=== PATIENT | female | born 1940 | race African-American/Black ===

== ENCOUNTER 2018-04-02 07:01 | Emergency (ER) | payer MEDICARE, MEDICAID ==
[~2018-04-02] VITALS: Ht 167.6 cm; Wt 72.7 kg
[2018-04-02] MEDS ORDERED: KETOROLAC 60MG/2ML VIAL IM STA (07:42)
[2018-04-02 08:45] LABS: BASOPHILS % 0.5 % (0.0-2.0); EOSINOPHILS % 1.8 % (0.0-5.0); HEMATOCRIT. 25.9 % (36.0-48.0); HEMOGLOBIN. 8.5 g/dL (12.0-16.0); LYMPHOCYTES % 26.9 % (20.0-50.0); MEAN CORPUSCULAR HEMOGLOBIN 32.5 pg (28.0-32.0); MEAN CORPUSCULAR VOLUME 98.9 fL (81.0-99.0); MEAN PLATELET VOLUME 7.4 fl (7.4-10.4); MONOCYTES % 11.7 % (2.0-8.0); NEUTROPHILS % 59.1 % (40.0-76.0); PLATELET 261 x1000/uL (130-400); RED BLOOD CELL COUNT 2.62 mill/uL (4.2-5.4); RED CELL DISTRIBUTION WIDTH 15.9 % (11.6-14.6)
[2018-04-02 08:50] LABS: CHLORIDE 104 mEq/L (98-107)
[2018-04-02 08:54] LABS: INR 1.6; PARTIAL THROMBOPLASTIN TIME 38.9 sec (23.4-31.0); PROTHROMBIN TIME 16.1 sec (9.1-11.1)
[2018-04-02 14:19] VITALS: BP 134/84
== END 2018-04-02 14:20 | disposition home or self-care (01) ==
LOC: ER 07:01
DX: M54.30 Sciatica, unspecified side (principal); I10 Essential (primary) hypertension; I48.91 Unspecified atrial fibrillation; J45.909 Unspecified asthma, uncomplicated
CPT/HCPCS: 36415; 71045; 80053; 83880; 84484; 85025; 85610; 85730; 93005; 96372; 99284; J1885

== ENCOUNTER 2018-05-15 11:01 | Inpatient (IN) | payer MEDICARE, MEDICAID ==
[~2018-05-15] VITALS: Ht 162.6 cm; Wt 59.0 kg
[2018-05-15] MEDS ORDERED: FAMOTIDINE 20MG/2ML VIAL IV ONE (11:30)
[2018-05-15] MEDS ORDERED: SODIUM CHLORIDE 0.9% 500 ML IV ONE (11:46)
[2018-05-15] MEDS ORDERED: ASPIRIN 81MG TABLET PO ONE (12:00)
[2018-05-15 13:38] LABS: BASOPHILS % 0.5 % (0.0-2.0); EOSINOPHILS % 1.2 % (0.0-5.0); HEMATOCRIT. 30.8 % (36.0-48.0); HEMOGLOBIN. 10.1 g/dL (12.0-16.0); LYMPHOCYTES % 33.9 % (20.0-50.0); MEAN CORPUSCULAR HEMOGLOBIN 31.9 pg (28.0-32.0); MEAN CORPUSCULAR VOLUME 96.9 fL (81.0-99.0); MEAN PLATELET VOLUME 7.5 fl (7.4-10.4); MONOCYTES % 13.4 % (2.0-8.0); PLATELET 220 x1000/uL (130-400); RED BLOOD CELL COUNT 3.17 mill/uL (4.2-5.4); RED CELL DISTRIBUTION WIDTH 13.7 % (11.6-14.6)
[2018-05-15 13:43] LABS: CHLORIDE 105 mEq/L (98-107)
[2018-05-15 13:47] LABS: INR 1.4; PROTHROMBIN TIME 14.4 sec (9.1-11.1)
[2018-05-15] MEDS ORDERED: FUROSEMIDE 20MG/2ML VIAL IVP ONE (14:00)
[2018-05-15] MEDS ORDERED: CEFTRIAXONE 1 G PREMIX 50 ML IV ONE (14:00)
[2018-05-15] MEDS ORDERED: POTASSIUM CHLORIDE 20MEQ TABLET SR PO ONE (14:15)
[2018-05-15 20:31] VITALS: BP 118/87
[2018-05-15 21:11] VITALS: BP 118/87
[2018-05-15] MEDS ORDERED: ONDANSETRON HCL 4MG/2ML INJ IV PRN (21:45)
[2018-05-15] MEDS ORDERED: CLONIDINE 0.1MG TABLET PO PRN (21:45)
[2018-05-15] MEDS ORDERED: TRAMADOL 50MG TABLET PO PRN (21:45)
[2018-05-15] MEDS ORDERED: MAGNESIUM/ALUMINUM HYDROXIDE/SIMETHICONE 30ML UDC PO PRN (21:45)
[2018-05-15] MEDS ORDERED: POTASSIUM CHLORIDE 20MEQ TABLET SR PO NR (21:45)
[2018-05-15] MEDS ORDERED: MAGNESIUM HYDROXIDE 400MG/5ML 30ML UDC PO PRN (21:45)
[2018-05-15] MEDS ORDERED: FAMOTIDINE 20MG TABLET PO SCH (22:00)
[2018-05-15] MEDS: SODIUM CHLORIDE 0.9% INJ 3ML FLUSH IVF SCH (23:03)
[2018-05-16] MEDS: ACETAMINOPHEN 325MG TABLET PO PRN ×2 (03:29→19:15)
[2018-05-16] MEDS: SODIUM CHLORIDE 0.9% INJ 3ML FLUSH IVF SCH ×2 (06:41→14:51)
[2018-05-16 08:00] VITALS: BP 98/62
[2018-05-16] MEDS ORDERED: ENOXAPARIN 30MG/0.3ML SYR SUBCUT SCH (09:00)
[2018-05-16] MEDS ORDERED: ALPRAZOLAM 0.25 MG TABLET PO NR (14:45)
[2018-05-16 16:03] VITALS: BP 101/63
[2018-05-16 18:05] VITALS: BP 101/63
[2018-05-16 20:00] VITALS: BP 100/61
== END 2018-05-16 20:25 | disposition home health service (06) | DRG 683 ==
LOC: ER 11:05 → 8WST 14:08 → EDBEDREQTM 14:13 → EDBEDREQ 14:13 → ENRESERV 14:25 → ER 18:32
PROVIDERS: ADMIT Internal Medicine; ATTEND Internal Medicine
DX: N17.9 Acute kidney failure, unspecified (principal); E44.1 Mild protein-calorie malnutrition; M94.0 Chondrocostal junction syndrome [Tietze]; E87.6 Hypokalemia; I10 Essential (primary) hypertension; K59.09 Other constipation; I48.2 Chronic atrial fibrillation; J44.9 Chronic obstructive pulmonary disease, unspecified; M19.012 Primary osteoarthritis, left shoulder; Z96.649 Presence of unspecified artificial hip joint; G89.29 Other chronic pain; M54.30 Sciatica, unspecified side; M54.9 Dorsalgia, unspecified; R31.9 Hematuria, unspecified; R39.15 Urgency of urination; Z82.49 Family history of ischemic heart disease and other diseases of the circulatory system; E86.0 Dehydration
CPT/HCPCS: 36415; 71045; 73030; 74176; 80048; 83735; 83880; 84484; 93005; 93970; 97162; 99291; J1650; J7040

== ENCOUNTER 2018-08-20 18:06 | Inpatient (IN) | payer MEDICARE, MEDICAID ==
[~2018-08-20] VITALS: Ht 162.6 cm; Wt 64.9 kg
[2018-08-20] MEDS ORDERED: SODIUM CHLORIDE 0.9% 1,000 ML IV ONE (18:53)
[2018-08-20 19:09] LABS: BASOPHILS % 0.6 % (0.0-2.0); EOSINOPHILS % 0.9 % (0.0-5.0); HEMATOCRIT. 25.4 % (36.0-48.0); HEMOGLOBIN. 8.3 g/dL (12.0-16.0); LYMPHOCYTES % 34.8 % (20.0-50.0); MEAN CORPUSCULAR HEMOGLOBIN 31.5 pg (28.0-32.0); MEAN CORPUSCULAR VOLUME 96.2 fL (81.0-99.0); MEAN PLATELET VOLUME 7.7 fl (7.4-10.4); MONOCYTES % 7.5 % (2.0-8.0); NEUTROPHILS % 56.2 % (40.0-76.0); PLATELET 178 x1000/uL (130-400); RED BLOOD CELL COUNT 2.64 mill/uL (4.2-5.4); RED CELL DISTRIBUTION WIDTH 15.5 % (11.6-14.6)
[2018-08-20 19:14] LABS: CHLORIDE 109 mEq/L (98-107)
[2018-08-20 19:17] LABS: INR 1.1; PARTIAL THROMBOPLASTIN TIME 21.8 sec (23.4-31.0); PROTHROMBIN TIME 11.2 sec (9.6-11.0)
[2018-08-20] MEDS ORDERED: ASPIRIN 325MG EC TABLET PO ONE (20:00)
[2018-08-20] MEDS ORDERED: LORAZEPAM 0.5MG TABLET PO ONE (23:00)
[2018-08-21] VITALS (8 sets, daily range): BP systolic 96–149; BP diastolic 47–85
[2018-08-21] MEDS ORDERED: LORAZEPAM 2MG/ML CPJ IV PRN (02:15)
[2018-08-21] MEDS: ACETAMINOPHEN 325MG TABLET PO PRN ×2 (03:19→18:01)
[2018-08-21 06:10] LABS: BASOPHILS % 0.8 % (0.0-2.0); EOSINOPHILS % 2.1 % (0.0-5.0); HEMATOCRIT. 24.1 % (36.0-48.0); HEMOGLOBIN. 7.8 g/dL (12.0-16.0); LYMPHOCYTES % 37.2 % (20.0-50.0); MEAN CORPUSCULAR HEMOGLOBIN 31.3 pg (28.0-32.0); MEAN CORPUSCULAR VOLUME 97.1 fL (81.0-99.0); MEAN PLATELET VOLUME 8.2 fl (7.4-10.4); MONOCYTES % 8.6 % (2.0-8.0); NEUTROPHILS % 51.3 % (40.0-76.0); PLATELET 156 x1000/uL (130-400); RED BLOOD CELL COUNT 2.49 mill/uL (4.2-5.4); RED CELL DISTRIBUTION WIDTH 15.9 % (11.6-14.6)
[2018-08-21 06:24] LABS: CHLORIDE 113 mEq/L (98-107)
[2018-08-21 06:44] LABS: LDL CHOLESTEROL 65 mg/dL (5-100)
[2018-08-21 06:45] LABS: HDL CHOLESTEROL 63 mg/dL (40-59)
[2018-08-21] MEDS ORDERED: ONDANSETRON HCL 4MG/2ML INJ IV PRN (07:30)
[2018-08-21] MEDS ORDERED: IPRATROPIUM/ALBUTEROL 0.5-3(2.5)MG/3ML NEB HHN PRN (07:30)
[2018-08-21 12:19] LABS: TOTAL IRON BINDING CAPACITY 161 ug/dL (250-450)
[2018-08-21] MEDS ORDERED: RIVAROXABAN 20 MG TABLET PO SCH (17:00)
== END 2018-08-21 21:15 | disposition left against medical advice (07) | DRG 69 ==
LOC: ER 18:19 → 5WST 20:02 → EDBEDREQ 20:04 → EDBEDREQTM 20:04 → ENRESERV 23:28
PROVIDERS: ADMIT Internal Medicine; ATTEND Internal Medicine
DX: G45.9 Transient cerebral ischemic attack, unspecified (principal); E44.1 Mild protein-calorie malnutrition; I50.40 Unspecified combined systolic (congestive) and diastolic (congestive) heart failure; D64.9 Anemia, unspecified; E87.8 Other disorders of electrolyte and fluid balance, not elsewhere classified; F41.9 Anxiety disorder, unspecified; H54.3 Unqualified visual loss, both eyes; I48.91 Unspecified atrial fibrillation; R20.2 Paresthesia of skin; J44.9 Chronic obstructive pulmonary disease, unspecified; K59.00 Constipation, unspecified; M19.90 Unspecified osteoarthritis, unspecified site; Z96.649 Presence of unspecified artificial hip joint; I11.0 Hypertensive heart disease with heart failure; Z53.21 Procedure and treatment not carried out due to patient leaving prior to being seen by health care provider; Z68.24 Body mass index [BMI] 24.0-24.9, adult
CPT/HCPCS: 36415; 71045; 80061; 82728; 83036; 83540; 83550; 83880; 84484; 93005; 93306; 97162; 99285; J7030

== ENCOUNTER 2018-09-15 11:03 | Inpatient (IN) | payer BC, MEDICAID ==
[~2018-09-15] VITALS: Ht 162.6 cm; Wt 56.7 kg
[2018-09-15] MEDS ORDERED: MORPHINE SULFATE 4 MG/ML CPJ (NOT FOR IM USE) IV STA (11:49)
[2018-09-15] MEDS ORDERED: ONDANSETRON HCL 4MG/2ML INJ IV STA (11:49)
[2018-09-15] MEDS ORDERED: SODIUM CHLORIDE 0.9% 1,000 ML IV ONE (11:49)
[2018-09-15 14:20] LABS: BASOPHILS % 0.8 % (0.0-2.0); EOSINOPHILS % 0.4 % (0.0-5.0); HEMATOCRIT. 31.3 % (36.0-48.0); HEMOGLOBIN. 10.3 g/dL (12.0-16.0); LYMPHOCYTES % 20.8 % (20.0-50.0); MEAN CORPUSCULAR HEMOGLOBIN 32.4 pg (28.0-32.0); MEAN CORPUSCULAR VOLUME 98.7 fL (81.0-99.0); MEAN PLATELET VOLUME 7.7 fl (7.4-10.4); MONOCYTES % 6.9 % (2.0-8.0); NEUTROPHILS % 71.1 % (40.0-76.0); PLATELET 192 x1000/uL (130-400); RED BLOOD CELL COUNT 3.17 mill/uL (4.2-5.4); RED CELL DISTRIBUTION WIDTH 15.2 % (11.6-14.6)
[2018-09-15 14:26] LABS: INR 1.1; PARTIAL THROMBOPLASTIN TIME 25.5 sec (23.4-31.0); PROTHROMBIN TIME 11.4 sec (9.6-11.0)
[2018-09-15 14:32] LABS: CHLORIDE 108 mEq/L (98-107)
[2018-09-15] MEDS ORDERED: MORPHINE SULFATE 4 MG/ML CPJ (NOT FOR IM USE) IV ONE (15:00)
[2018-09-15] MEDS ORDERED: DEXTROSE 50% WATER 50ML SYRINGE IV ONE ×2 (15:00→16:00)
[2018-09-15] MEDS ORDERED: ASPIRIN 325MG EC TABLET PO ONE (15:30)
[2018-09-15] MEDS ORDERED: DEXT 5%/0.45% NACL 1000ML 1,000 ML IV SCH (16:25)
[2018-09-15] MEDS ORDERED: CLONIDINE 0.1MG TABLET PO PRN (16:30)
[2018-09-15] MEDS ORDERED: HYDROCODONE/ACETAMINOPHEN 5/325MG TABLET PO PRN (16:30)
[2018-09-15] MEDS ORDERED: ACETAMINOPHEN 325MG TABLET PO PRN (16:30)
[2018-09-15] MEDS ORDERED: IPRATROPIUM/ALBUTEROL 0.5-3(2.5)MG/3ML NEB INH PRN (16:30)
[2018-09-15] MEDS ORDERED: ONDANSETRON HCL 4MG/2ML INJ IV PRN (16:30)
[2018-09-15] MEDS ORDERED: LORAZEPAM 2MG/ML CPJ IV ONE (20:45)
[2018-09-15 22:20] VITALS: BP 112/62
[2018-09-16] VITALS: BP_SYST 114; BP_SYST 134; BP_DIAS 61; BP_DIAS 82
[2018-09-16] MEDS: ENOXAPARIN 40MG/0.4ML SYR SUBCUT SCH ×2 (02:02→21:00)
[2018-09-16 04:00] VITALS: BP 116/69
[2018-09-16] MEDS ORDERED: DEXTROSE 50% WATER 50ML SYRINGE IV ONE (06:37)
[2018-09-16] MEDS ORDERED: DEXTROSE 50% WATER 50ML SYRINGE IV PRN ×2 (07:15→18:15)
[2018-09-16 09:14] LABS: BASOPHILS % 0.5 % (0.0-2.0); EOSINOPHILS % 1.7 % (0.0-5.0); HEMATOCRIT. 27.8 % (36.0-48.0); HEMOGLOBIN. 9.1 g/dL (12.0-16.0); LYMPHOCYTES % 26.5 % (20.0-50.0); MEAN CORPUSCULAR HEMOGLOBIN 32.6 pg (28.0-32.0); MEAN CORPUSCULAR VOLUME 99.5 fL (81.0-99.0); MEAN PLATELET VOLUME 8.2 fl (7.4-10.4); MONOCYTES % 8.3 % (2.0-8.0); PLATELET 174 x1000/uL (130-400); RED CELL DISTRIBUTION WIDTH 15.3 % (11.6-14.6)
[2018-09-16 09:42] LABS: CHLORIDE 107 mEq/L (98-107)
[2018-09-16 09:49] LABS: LDL CHOLESTEROL 62 mg/dL (5-100)
[2018-09-16 09:50] LABS: CREATINE KINASE 36 IU/L (26-192)
[2018-09-16 09:51] LABS: HDL CHOLESTEROL 64 mg/dL (40-59)
[2018-09-16 12:00] VITALS: BP 100/57
[2018-09-16] MEDS ORDERED: ALPRAZOLAM 0.25 MG TABLET PO PRN (12:15)
[2018-09-16] MEDS: RISPERIDONE 0.5MG TABLET PO SCH ×3 (13:30→18:19)
[2018-09-16] MEDS ORDERED: LORAZEPAM 2MG/ML CPJ IV PRN (15:15)
[2018-09-16 16:00] VITALS: BP 87/51
[2018-09-16 17:45] VITALS: BP 88/56
[2018-09-16] MEDS ORDERED: SODIUM CHLORIDE 0.9% 250 ML IV ONE ×2 (18:15)
[2018-09-16 20:00] VITALS: BP 85/43
[2018-09-16] MEDS: BLOOD SUGAR DIAGNOSTIC STRIP TEST SCH (20:59)
[2018-09-17] VITALS: BP 85/49
[2018-09-17] MEDS ORDERED: SODIUM CHLORIDE 0.9% 250 ML IV ONE (01:15)
[2018-09-17 02:13] VITALS: BP 97/66
[2018-09-17 04:00] VITALS: BP 103/60
[2018-09-17] MEDS: BLOOD SUGAR DIAGNOSTIC STRIP TEST SCH (06:12)
[2018-09-17 08:00] VITALS: BP 88/52
[2018-09-17] MEDS: RISPERIDONE 0.5MG TABLET PO SCH (08:48)
[2018-09-17] MEDS ORDERED: NEBI10TA2 MT (11:03)
[2018-09-17] MEDS ORDERED: APIX2.5T MT (11:03)
[2018-09-17 12:00] VITALS: BP 97/59
[2018-09-17 12:07] VITALS: BP 97/59
== END 2018-09-17 12:55 | disposition home health service (06) | DRG 552 ==
LOC: ER 11:03 → ENRESERV 20:35 → 8WST 22:20 → 6WST 09-16 08:13
PROVIDERS: ADMIT Internal Medicine; ATTEND Internal Medicine
DX: M48.061 Spinal stenosis, lumbar region without neurogenic claudication (principal); E44.1 Mild protein-calorie malnutrition; M43.16 Spondylolisthesis, lumbar region; D64.9 Anemia, unspecified; F03.90 Unspecified dementia, unspecified severity, without behavioral disturbance, psychotic disturbance, mood disturbance, and anxiety; I10 Essential (primary) hypertension; M47.896 Other spondylosis, lumbar region; M19.90 Unspecified osteoarthritis, unspecified site; E16.2 Hypoglycemia, unspecified; I48.91 Unspecified atrial fibrillation; J44.9 Chronic obstructive pulmonary disease, unspecified; Z96.649 Presence of unspecified artificial hip joint; Z79.899 Other long term (current) drug therapy; Z79.01 Long term (current) use of anticoagulants
CPT/HCPCS: 36415; 71045; 72148; 73502; 80061; 82550; 82962; 83036; 83880; 84484; 93005; 96374; 97162; 99285; C1893; J1650; J2060; J2270; J2405; J7030; J7050; A4315

== ENCOUNTER 2018-10-13 15:17 | Emergency (ER) | payer BC, MEDICAID ==
[~2018-10-13] VITALS: Ht 167.6 cm; Wt 45.0 kg
[~2018-10-13 15:17] MED LIST: APIX2.5T MT; NEBI10TA2 MT
[2018-10-13] MEDS ORDERED: KETOROLAC 30MG/ML VIAL IV STA (15:40)
[2018-10-13] MEDS ORDERED: ONDANSETRON HCL 4MG/2ML INJ IV STA (15:40)
[2018-10-13 16:14] LABS: BASOPHILS % 0.5 % (0.0-2.0); EOSINOPHILS % 2.3 % (0.0-5.0); HEMATOCRIT. 25.8 % (36.0-48.0); HEMOGLOBIN. 8.6 g/dL (12.0-16.0); LYMPHOCYTES % 32.3 % (20.0-50.0); MEAN CORPUSCULAR HEMOGLOBIN 32.7 pg (28.0-32.0); MEAN CORPUSCULAR VOLUME 98.4 fL (81.0-99.0); MONOCYTES % 11.6 % (2.0-8.0); NEUTROPHILS % 53.3 % (40.0-76.0); PLATELET 168 x1000/uL (130-400); RED BLOOD CELL COUNT 2.62 mill/uL (4.2-5.4); RED CELL DISTRIBUTION WIDTH 13.5 % (11.6-14.6)
[2018-10-13 16:16] LABS: CHLORIDE 99 mEq/L (98-107)
[2018-10-13] MEDS ORDERED: MORPHINE SULFATE 2 MG/ML CPJ (NOT FOR IM USE) IV ONE (17:15)
[2018-10-13] MEDS ORDERED: HYDROCODONE/ACETAMINOPHEN 5/325MG TABLET PO ONE (17:30)
[2018-10-13] MEDS ORDERED: SODIUM CHLORIDE 0.9% 500 ML IV ONE (17:30)
[2018-10-13] MEDS ORDERED: FUROSEMIDE 40MG TABLET PO ONE (18:00)
[2018-10-13] MEDS ORDERED: ASPIRIN 81MG TABLET PO ONE (18:00)
[2018-10-13 21:35] VITALS: BP 115/65
== END 2018-10-13 21:54 | disposition short-term general hospital (02) ==
LOC: ER 15:17 → EDBEDREQ 17:58 → ER 21:54 → CANBEDREQ 23:55
DX: R10.33 Periumbilical pain (principal); M48.56XA Collapsed vertebra, not elsewhere classified, lumbar region, initial encounter for fracture; I11.0 Hypertensive heart disease with heart failure; I50.9 Heart failure, unspecified; J45.909 Unspecified asthma, uncomplicated; I48.91 Unspecified atrial fibrillation; Z96.649 Presence of unspecified artificial hip joint; Z79.01 Long term (current) use of anticoagulants
CPT/HCPCS: 36415; 71045; 74176; 80053; 83690; 83880; 84484; 85025; 93005; 96361; 96374; 96375; 99285; J1885; J2270; J2405; J7040